=== PATIENT | female | born 1980 | race Caucasian/White ===

== ENCOUNTER 2019-05-31 19:54 | Emergency (ER) | payer MEDICAID ==
--- NOTE | 2019-05-31 19:57 | EDM.PDOC ---
ED HPI GENERAL MEDICAL PROBLEM - General Chief Complaint: ENT Problem Stated Complaint: right ear pain Time Seen by Provider: 05/31/19 19:56 Source of Information: Reports: Patient, Old Records ([facility] EMR. No paper hospital chart available.) History Limitations: Reports: No Limitations - History of Present Illness INITIAL COMMENTS - FREE TEXT/NARRATIVE: The patient was brought to the emergency room via private automobile by her boyfriend for evaluation of 03/11 throbbing right sided otalgia with a one- month history of URI symptoms and recent completion of Zithromax therapy for otitis media. Patient was also evaluated in our emergency room on 05/26 with IM Rocephin given at that time only minimal right-sided TM injection during that evaluation. Patient did take 600 mg of ibuprofen about one hour prior to arrival. sHe denies any known recent exposure to infection. No recent history of abdominal pain, heartburn, nausea, diarrhea, melena, gross hematochezia, or any food intolerance, including fatty foods, etc.. The patient also denies any recent fever, cough, wheezing, dyspnea, etc. although possible recent chills that patient not measuring her temperature. Onset: Gradual, Other (As above) Duration: Week(s): (As above), Getting Worse Location: Reports: Other (Right-sided otalgia). Denies: Head, Face, Neck, Chest , Abdomen, Back, Radiates to Quality: Reports: Same as Previous Episode, Throbbing Severity: Severe Improves with: Reports: None Worsens with: Reports: None Context: Reports: Other (As above). Denies: Sick Contact, Trauma Associated Symptoms: Reports: Fever/Chills. Denies: Confusion, Chest Pain, Cough, Diaphoresis, Headaches, Loss of Appetite, Malaise, Nausea/Vomiting, Rash , Shortness of Breath, Syncope, Weakness Treatments [employer]: Reports: NSAIDS Right Ear Pain Score (Numeric/FACES): 10 - Related Data Allergies Allergy/AdvReac Type Severity Reaction Status Date / Time amoxicillin [Amoxicillin] Allergy Rash Verified 05/31/19 20:09 benzonatate Allergy Rash Verified 05/31/19 20:09 gabapentin Allergy Difficulty Verified 05/31/19 20:09 Swallowing ketorolac [From Toradol] Allergy Itching Verified 05/31/19 20:09 loratadine [From Claritin] Allergy Cannot Verified 05/31/19 20:09 Remember topiramate [From Topamax] Allergy Numbness Verified 05/31/19 20:09 meloxicam AdvReac Stomach Verified 05/31/19 20:09 Ache Aspartame-Fd&C Blue #2 Allergy Other Uncoded 05/31/19 20:09 [facility] Home Meds: Home Meds FLUoxetine [PROzac] 60 mg PO DAILY 03/22/14 [History] Propranolol HCl [Inderal LA] 60 mg PO DAILY 09/29/16 [History] Acetaminophen/Caffeine [Excedrin Tension Headache Cplt] 1 each PO DAILY PRN [History] Omeprazole 20 mg PO DAILY 05/31/19 [History] guaiFENesin/Dextromethorphan [Mucinex Dm ER 600-30 mg Tablet] 1 tab PO Q12HR [History] Past Medical History HEENT History: Reports: Allergic Rhinitis, Other (See Below) Other HEENT History: Allergic Rhinitis per medical records which patient denies. Cardiovascular History: Reports: Arrhythmia, Other (See Below) Other Cardiovascular History: Sinus tachycardia Respiratory History: Reports: Bronchitis, Recurrent Gastrointestinal History: Reports: Chronic Constipation, GERD, Other (See Below) Other Gastrointestinal History: History of abdominal adhesions secondary to multiple surgeries as below. Chronic abdominal and pelvic pain with history of endometriosis as below. Genitourinary History: Reports: UTI, Recurrent [employer] History: Reports: Endometrial Ablation, Endometriosis LMP (Approximate): Other (See Below) Other [employer] History: Endometriosis requiring surgeries as below with surgical menopause. Musculoskeletal History: Reports: Arthritis, Back Pain, Chronic, Fracture, Fibromyalgia, Neck Pain, Chronic, Osteoarthritis, Other (See Below) Other Musculoskeletal History: C4-C5 spinal stenosis requiring surgery as below. Chronic pain syndrome. Foot fracture? Right distal fibular fracture on . Neurological History: Reports: Headaches, Chronic, Migraines, Other (See Below) . Denies: CVA Other Neuro History: Chronic tension and migraine headaches. Psychiatric History: Reports: ADD, Anxiety, Bipolar, Depression, PTSD Other Psychiatric History: insomnia. Chronic narcotic use. Endocrine/Metabolic History: Reports: Obesity/BMI 30+, Vitamin D Deficiency, Other (See Below) Other Endocrine/Metabolic History: Benign left adrenal adenoma with fatty infiltration. - Infectious Disease History Infectious Disease History: Reports: None - Past Surgical History HEENT Surgical History: Reports: Oral Surgery, Other (See Below) Other HEENT Surgeries/Procedures: Dental extractions, braces, retainer, etc. GI Surgical History: Reports: Appendectomy, Colonoscopy, Other (See Below) Other GI Surgeries/Procedures: Normal colonoscopy on 02/17/18. Appendectomy in 2013. Female Surgical History: Reports: Endometrial Ablation, Hysterectomy, Salpingo-Oophorectomy, Other (See Below) Other Female Surgeries/Procedures: Endometrial ablation 2010. Laparoscopic abdominal and pelvic evaluationdate unknown. Complete hysterectomy including bilateral salpingo-oophorectomy in 2011 secondary to endometriosis. Neurological Surgical History: Reports: C-Spine, Discectomy, Spinal Fusion, Other (See Below) Other Neurological Surgeries/Procedures: C4-C5 spinal fusion and discectomy secondary to spinal stenosis on 04/02/17. - Past Imaging History Past Imaging History: Reports: CAT Scan (CT of the abdomen and pelvis on 09/29/17 , 04/28/16, and 03/22/14. CT of the chest, abdomen, and pelvis on 09/19/17. CT of the head on 08/17/17, 05/30/16, and 11/19/13. CT of the pelvis on 04/23/17. CT of the C-spine on 04/23/17 and 09/29/16. CT of the thoracic, cervical, and lumbar spines on 04/12/17.), MRI (The spine on 10/11/16.) Social & Family History - Family History Family Medical History: Noncontributory - Tobacco Use Smoking Status *Q: Former Smoker Tobacco Use Within Last Twelve Months: Cigarettes Years of Tobacco use: 1 Packs/Tins Daily: 0.3 (Use since age 24) Used Tobacco, but Quit: Yes Smoking Cessation Information Provided To Patient: No Second Hand Smoke Exposure: No Second Hand Smoke Education Provided: No - Caffeine Use Caffeine Use: Reports: Coffee - Living Situation & Occupation Occupation: Employed (VASCULAR NURSE for elderly care) ED ROS GENERAL - Review of Systems Review Of Systems: Comprehensive ROS is negative, except as noted in HPI. ED EXAM, GENERAL - Physical Exam Exam: See Below Exam Limited By: Uncooperative General Appearance: Alert, WD/WN, No Apparent Distress, Anxious (Moderate) Eye Exam: Bilateral Eye: EOMI, Normal Inspection (No nystagmus), PERRL Ears: Normal External Exam, Normal Canal (However moderate impacted cerumen in the left EAC), Hearing Grossly Normal, Normal TMs Nose: Normal Inspection, Normal Mucosa, No Blood, Other (Left Sided nasal steroid) Throat/Mouth: Normal Inspection, Normal Lips, Normal Teeth (Superior retainer), Normal Gums, Normal Oropharynx, Normal Voice, No Airway Compromise. No: Dysphagia, Perioral Cyanosis Head: Atraumatic. No: Facial Swelling, Facial Tenderness, Sinus Tenderness Neck: Normal Inspection, Supple, Non-Tender, Full Range of Motion. No: Lymphadenopathy (L), Lymphadenopathy (R), Thyromegaly Respiratory/Chest: No Respiratory Distress, Lungs Clear, Normal Breath Sounds, No Accessory Muscle Use, Chest Non-Tender. No: Pleural Rub, Retractions Cardiovascular: Normal Peripheral Pulses, Regular Rate, Rhythm, No Edema, No Gallop, No JVD, No Murmur, No Rub. No: Gallop/S3, Gallop/S4, Friction Rub Peripheral Pulses: 2+: Radial (L), Radial (R) GI/Abdominal: Normal Bowel Sounds, Soft, Non-Tender, No Organomegaly, No Distention, No Abnormal Bruit, No Mass, Other (Obese). No: Guarding (Female) Exam: Deferred Rectal (Female) Exam: Deferred Back Exam: Normal Inspection, Full Range of Motion. No: CVA Tenderness (L), CVA Tenderness (R), Muscle Spasm Extremities: Normal Inspection, Normal Range of Motion, Non-Tender, No Pedal Edema, Normal Capillary Refill. No: Claude's Sign Neurological: Alert, Oriented, CN II-XII Intact, Normal Cognition, Normal Gait, No Motor/Sensory Deficits Psychiatric: Anxious (Moderate), Depressed Mood (Mild to moderate with adequate eye contact) Skin Exam: Warm, Dry, Intact, Normal Color, No Rash, Stud(s). No: Diaphoretic, Wound/Incision Lymphatic: No Adenopathy Course - Vital Signs Last Recorded V/S: Last Vital Signs Temp 35.9 C 05/31/19 19:58 Pulse 79 05/31/19 20:06 Resp 18 05/31/19 20:06 BP 135/96 H 05/31/19 20:06 Pulse Ox 100 05/31/19 20:06 Vital Signs - 24 hr 05/31/19 05/31/19 19:58 20:06 Temperature [ 35.9 C Temporal] Pulse, 94 79 Peripheral [ Pulse Oximetry] Respiratory 17 18 Rate Blood Pressure 154/105 H 135/96 H [Left Upper Arm ] O2 Sat by Pulse 100 100 Oximetry - Orders/Labs/Meds Orders: Active Orders 24 hr Category Date Time Status Obtain Past Medical Record [OM.PC] Routine Oth 05/31/19 20:04 Active Labs: None Meds: Medications Discontinued Medications Generic Name Dose Route Start Last Admin Trade Name Libby PRN Reason Stop Dose Admin Methylprednisolone Acetate 80 mg 05/31/19 20:04 05/31/19 20:11 Depo-Medrol IM 05/31/19 20:05 80 mg ONETIME ONE Administration - Radiology Interpretation Free Text/Narrative:: None Departure - Departure Time of Disposition: 20:20 Disposition: Home, Self-Care 01 Condition: Good Clinical Impression: Elevated blood pressure reading, Mixed anxiety depressive disorder, Peptic reflux disease Eustachian tube dysfunction Qualifiers: Laterality: bilateral Qualified Code(s): H69.83 - Other specified disorders of Eustachian tube, bilateral Osteoarthritis Qualifiers: Osteoarthritis location: multiple joints Osteoarthritis type: primary Qualified Code(s): M15.0 - Primary generalized (osteo)arthritis - Discharge Information *PRESCRIPTION DRUG MONITORING PROGRAM REVIEWED*: Not Applicable *COPY OF PRESCRIPTION DRUG MONITORING REPORT IN PATIENT MARIANN: Not Applicable Instructions: Eustachian Tube Dysfunction Forms: ED Department Discharge Additional Instructions: 1. Follow up with your regular provider in 10-14 days as needed, if symptoms persist. Bring these discharge instructions with you to that visit.. 2. Tylenol 650 mg by mouth every 4 hours and/or OTC ibuprofen 2-3 tabs by mouth every 6 hours with food as directed./needed. You may stagger these medications for 48-72 hours only, which essentially means that you are receiving a pain medication about every 2 hours. 3. Valsalva maneuvers at least 4 times a day as directed 4. Immediately after this visit verify that your cellular telephone's voicemail has been activated and is empty. Also verify that your home telephone 's answering machine is operating properly and has space to receive messages. Note that it is sometimes necessary for us to be able to contact you at a later date to discuss your medical care. 5. Please remember that we are ALWAYS here for you and want to answer any questions you may have. Feel free to call the hospital any time and we call you back DIANA. 6. Continue to observe your blood pressures and pulses closely through your regular provider. 7. Hydrogen peroxide to left ear canal, left soak for 5 minutes and then irrigation with room temperature tapwater with your bulb syringe as directed. Repeat as needed. Sepsis Event Note - Focused Exam Vital Signs: Vital Signs Temp Pulse Resp BP Pulse Ox 05/31/19 20:06 79 18 135/96 H 100 05/31/19 19:58 35.9 C 94 17 154/105 H 100 Date Exam was Performed: 05/31/19 Time Exam was Performed: 20:42 - Problem List & Annotations (1) Eustachian tube dysfunction SNOMED Code(s): 30617950 Code(s): H69.80 - OTH DISRD OF EUSTACHIAN TUBE, UNSPECIFIED EAR Status: Chronic Priority: High Annotation/Comment:: She denies previous allergic rhinitis despite review of medical records by me today. IM Depo-Medrol given with eustachian tube dysfunction likely secondary to her allergic rhinitis. Valsalva maneuvers were discussed. Symptomatic relief as per discharge instructions. Patient encouraged to remain compliant with her Mucinex D. No evidence of otitis media at this time. Right-sided otalgia with some anxiety component. Note left-sided impacted cerumen with ear hygiene discussed with no evidence of infection by limited exam. Qualifiers: Laterality: bilateral Qualified Code(s): H69.83 - Other specified disorders of Eustachian tube, bilateral (2) Mixed anxiety depressive disorder SNOMED Code(s): 336168946 Code(s): F41.8 - OTHER SPECIFIED ANXIETY DISORDERS Status: Chronic Priority: Medium Annotation/Comment:: Moderate to poor control based on today' s evaluation. Continue to observe closely by regular provider. Emotional support provided. (3) Osteoarthritis SNOMED Code(s): 589115787 Code(s): M19.90 - UNSPECIFIED OSTEOARTHRITIS, UNSPECIFIED SITE Status: Chronic Priority: Medium Annotation/Comment:: Stable by history Qualifiers: Osteoarthritis location: multiple joints Osteoarthritis type: primary Qualified Code(s): M15.0 - Primary generalized (osteo)arthritis (4) Peptic reflux disease SNOMED Code(s): 277475881 Code(s): K21.9 - GASTRO-ESOPHAGEAL REFLUX DISEASE WITHOUT ESOPHAGITIS Status: Chronic Priority: Medium Annotation/Comment:: Stable by history (5) Elevated blood pressure reading SNOMED Code(s): 02724400 Code(s): R03.0 - ELEVATED BLOOD-PRESSURE READING, W/O DIAGNOSIS OF HTN Status: Acute Priority: High Onset Date: 05/31/19 Annotation/Comment:: Improved prior to discharge without additional medical therapy. Strong anxiety component. Continue to observe closely by her regular provider with no previous history of hypertension. Current jules therapy is for her migraine headaches. - Problem List Review Problem List Initiated/Reviewed/Updated: Yes - My Orders Last 24 Hours: My Active Orders 05/31/19 20:04 Obtain Past Medical Record [OM.PC] Routine - Assessment/Plan Last 24 Hours: My Active Orders 05/31/19 20:04 Obtain Past Medical Record [OM.PC] Routine Assessment:: As above Plan: As above. Extensive precautions were given to the patient, who is in agreement with the treatment plan. See Patient Instructions for further treatment and plan.
[2019-05-31 20:06] VITALS: BP 135/96; PULSE 79
[2019-05-31] MEDS: methylPREDNISolone Acetate 80 MG/ML SDV IM ONE (20:11)
== END 2019-05-31 20:20 | disposition home or self-care (01) ==
LOC: LL.ED 19:54
DX: H69.93 Unspecified Eustachian tube disorder, bilateral (principal); F41.8 Other specified anxiety disorders; M89.49 Other hypertrophic osteoarthropathy, multiple sites; K27.9 Peptic ulcer, site unspecified, unspecified as acute or chronic, without hemorrhage or perforation; R03.0 Elevated blood-pressure reading, without diagnosis of hypertension; K21.9 Gastro-esophageal reflux disease without esophagitis; M19.90 Unspecified osteoarthritis, unspecified site; F41.9 Anxiety disorder, unspecified; F32.9 Major depressive disorder, single episode, unspecified; F98.8 Other specified behavioral and emotional disorders with onset usually occurring in childhood and adolescence; E66.9 Obesity, unspecified; Z87.891 Personal history of nicotine dependence; Z88.1 Allergy status to other antibiotic agents; Z88.8 Allergy status to other drugs, medicaments and biological substances; Z79.899 Other long term (current) drug therapy
CPT/HCPCS: 96372; 99282-25; J1040